=== PATIENT | female | born 1955 | race Caucasian/White ===

== ENCOUNTER → 2020-01-16 | Outpatient (CLI) | payer MEDICARE | END | disposition home or self-care (01) | LOC: PETCFH 12:54 | PROVIDERS: ATTEND Internal Medicine Hematology & Oncology | DX: C82.15 Follicular lymphoma grade II, lymph nodes of inguinal region and lower limb (principal); R59.1 Generalized enlarged lymph nodes | CPT/HCPCS: 78815; A9552 ==